=== PATIENT | male | born 2000 | race Hispanic/Latino ===

== ENCOUNTER 2024-08-13 09:31 | Day surgery (SDC) | payer BC ==
[2024-08-06 08:19] VITALS: BMI 29.1
[2024-08-13] MEDS ORDERED: Rocuronium Bromide 10 MG/ML (10ML VIAL) ONE (13:23)
[2024-08-13] MEDS ORDERED: PROPOFOL 20 ML ONE (13:23)
[2024-08-13] MEDS ORDERED: Ondansetron PF 4 MG/2 ML Vial ONE (13:23)
[2024-08-13] MEDS ORDERED: Lidocaine 2% PF 5 ML VIAL ONE (13:23)
[2024-08-13] MEDS ORDERED: Dexamethasone 4 mg/ml Vial ONE (13:23)
[2024-08-13] MEDS ORDERED: Bupivacaine HCl 0.5%/Epinephrine 1:200,000/PF 30 ml Vial ONE (13:44)
[2024-08-13] MEDS ORDERED: Fentanyl 250 MCG/5 ML VIAL ONE (13:46)
[2024-08-13] MEDS ORDERED: CEFAZOLIN 2 GM VIAL ONE (13:56)
[2024-08-13] MEDS ORDERED: PHENYLEPHRINE-NS 100 MCG/ML 10 ML SYRINGE ONE (14:19)
[2024-08-13] MEDS ORDERED: SUGAMMADEX SODIUM 200 MG/2 ML VIAL ONE (14:55)
[2024-08-13] MEDS ORDERED: Meperidine HCl/PF 25 MG (1 mL) VIAL ONE (15:04)
[2024-08-13] MEDS ORDERED: fentaNYL 50 mcg/mL 1 mL Vial ONE ×2 (15:35→16:09)
[2024-08-13] MEDS ORDERED: HYDROcodone/Acetaminophen 5/325 mg Tablet ONE (16:27)
== END 2024-08-13 16:50 | disposition home or self-care (01) ==
LOC: CSHSDC 09:31
PROVIDERS: ATTEND Surgery
PROC: 0FT44ZZ Resection of Gallbladder, Percutaneous Endoscopic Approach (ICD-10-PCS; principal; 2024-08-13)
DX: K80.10 Calculus of gallbladder with chronic cholecystitis without obstruction (principal); F32.A Depression, unspecified; F32.9 Major depressive disorder, single episode, unspecified; Z90.49 Acquired absence of other specified parts of digestive tract
CPT/HCPCS: 88304; C1889; J1100; J2175; J2405; J2704; J3010; S2900